=== PATIENT | male | born 1980 | race Caucasian/White ===

== ENCOUNTER 2018-03-27 10:25 | Emergency (ER) | payer OTHER ==
[2018-03-27 10:41] VITALS: BP 156/87
--- NOTE | 2018-03-27 12:52 | XRAY Report ---
Procedure Date: 03/27/2018 Accession Number: [id number] / [id number] Procedure: XR - Knee 3 View RT CPT Code: FULL RESULT: EXAM: RIGHT KNEE RADIOGRAPHY EXAM DATE: 03/27/2018 12:39 PM. CLINICAL HISTORY: Pain while dancing. COMPARISON: None. TECHNIQUE: 3 views. FINDINGS: Bones: Normal. No fractures or bone lesions. Joints: There are minimal degenerative changes of the lateral femorotibial compartment and there is no joint effusion. Soft Tissues: Normal. No soft tissue swelling. IMPRESSION: Minimal degenerative changes. RADIA
--- NOTE | 2018-03-27 13:03 | ED Physician Documentation ---
PD HPI LOWER EXT INJURY - Stated complaint Stated Complaint: RT KNEE PX - Chief complaint Chief Complaint: Trauma Ext - History obtained from History obtained from: Patient - History of Present Illness PD HPI LOW EXT INJURY LOCATION: Right, Knee Type of injury: Other (dancing) Timing - onset: How many weeks ago (5) Timing - duration: Weeks (5) Timing - details: Abrupt onset, Still present Improved by: Rest, Ice, Immobilization Worsened by: Moving, Palpating Associated symptoms: Swelling, Discolored. 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 He has recently gone out and done some dancing and following that he ended up with an effusion on his knee and this did lead to some bleeding subcutaneously with some discoloration of his anterior calf that is all now resolved. The patient has been using a compression sleeve and a articulating brace while he is at work. Despite all this he continues to have pain in the knee and he is wondering what more he can do for this. He has had having some trouble at work and he is self-employed. Review of Systems Constitutional: denies: Fever Eyes: denies: Decreased vision Ears: denies: Ear pain Nose: denies: Congestion Throat: denies: Sore throat Respiratory: denies: Cough GI: denies: Vomiting Musculoskeletal: reports: Extremity pain, Joint pain, Joint swelling, Pain with weight bearing Neurologic: denies: Generalized weakness, Focal weakness, Numbness PD PAST MEDICAL HISTORY - Past Medical History Past Medical History: No - Past Surgical History Past Surgical History: Yes General: Other - Present Medications Home Medications: Ambulatory Orders Medication Instructions Recorded Confirmed No Known Home Medications [No 03/27/18 03/27/18 Known Home Medications] - Allergies Allergies/Adverse Reactions: Allergies Allergy/AdvReac Type Severity Reaction Status Date / Time No Known Drug Allergies Allergy Verified 03/27/18 10:41 - Social History Does the pt smoke?: No Smoking Status: Never smoker Does the pt drink ETOH?: Yes ETOH Use: Beer Does the pt have substance abuse?: Yes Substance Use and Type: Marijuana - Immunizations Immunizations are current?: Yes - POLST Patient has POLST: No PD ED PE NORMAL - Vitals Vital signs reviewed: Yes (hypertensive) - General General: Alert and oriented X 3, No acute distress, Well developed/nourished - HEENT HEENT: Atraumatic, PERRL - Respiratory Respiratory: No respiratory distress - Derm Derm: Normal color, Warm and dry, No rash - Extremities Extremities: No deformity, No edema, Other (There is minimal effusion present and full ROM. Ligaments are stable to testing and distal n/v is intact. ) - Neuro Neuro: Alert and oriented X 3, scale model maker 2-12 intact, No motor deficit, No sensory deficit, Normal speech Eye Opening: Spontaneous Motor: Obeys Commands Verbal: Oriented GCS Score: 15 - Psych Psych: Normal mood, Normal affect Results - Vitals Vitals: Vital Signs - 24 hr 03/27/18 10:38 Temperature 36.6 C Heart Rate 71 Respiratory 18 Rate Blood Pressure 156/87 H O2 Saturation 98 Oxygen O2 Source Room air - Rads (name of study) right knee Radiology: Prelim report reviewed (Impression: Minimal degenerative changes.), EMP read indepedently, See rad report PD MEDICAL DECISION MAKING - ED course Complexity details: reviewed results, re-evaluated patient, considered differential, d/w patient ED course: 38-year-old male with right knee effusion has some mild arthritis on his x-ray he appears to have overdone it and is having slow resolution of the effusion. He is administered dexamethasone 10 mg orally. He is instructed on physical therapy for his knee to strengthen his quadriceps and improve the joint ride. I have referred the patient to orthopedics should he require further treatment with injection. - Sepsis Event Vital Signs: Vital Signs - 24 hr 03/27/18 10:38 Temperature 36.6 C Heart Rate 71 Respiratory 18 Rate Blood Pressure 156/87 H O2 Saturation 98 Oxygen O2 Source Room air Departure - Departure Disposition: 01 Home, Self Care Clinical Impression: Internal derangement of knee Qualifiers: Laterality: right Qualified Code(s): M23.91 - Unspecified internal derangement of right knee Condition: Stable Instructions: ED Effusion Knee Follow-Up: [facility] [Provider Group]
[2018-03-27] MEDS ORDERED: DEXAMETHASONE 10 MG/ML VIAL PO STA (13:04)
== END 2018-03-27 13:09 | disposition home or self-care (01) ==
LOC: ED 10:25
DX: M23.91 Unspecified internal derangement of right knee (principal)
CPT/HCPCS: 99283

== ENCOUNTER 2019-07-19 07:07 | Outpatient (CLI) | payer OTHER ==
[2019-07-19 10:12] LABS: BASOPHILS # (AUTO) 0.1 10^3/uL (0.0-0.1); BASOPHILS % (AUTO) 0.9 %; EOSINOPHILS # (AUTO) 0.2 10^3/uL (0.0-0.7); EOSINOPHILS % (AUTO) 3.2 %; HGB - HEMOGLOBIN 16.2 g/dL (14.0-18.0); LYMPHOCYTES # (AUTO) 1.8 10^3/uL (1.5-3.5); LYMPHOCYTES % (AUTO) 27.5 %; MEAN CORPUSCULAR HEMOGLOBIN 30.8 pg (27.0-31.0); MEAN CORPUSCULAR HGB CONC 34.8 g/dL (32.0-36.0); MEAN CORPUSCULAR VOLUME 88.6 fL (80.0-94.0); MEAN PLATELET VOLUME 11.4 fL (7.4-11.4); MONOCYTES # (AUTO) 0.6 10^3/uL (0.0-1.0); MONOCYTES % (AUTO) 9.3 %; NEUTROPHILS # (AUTO) 3.9 10^3/uL (1.5-6.6); NEUTROPHILS % (AUTO) 58.8 %; PLT - PLATELET COUNT 229 10^3/uL (130-450); RED BLOOD COUNT 5.26 10^6/uL (4.70-6.10); RED CELL DISTRIBUTION WIDTH 12.2 % (12.0-15.0); WHITE BLOOD COUNT 6.6 x10^3/uL (4.8-10.8)
[2019-07-19 10:29] LABS: ALBUMIN 4.5 g/dL (3.2-5.5); ALBUMIN/GLOBULIN RATIO 1.5 (1.0-2.2); ALKALINE PHOSPHATASE 44 IU/L (42-121); ALT ALANINE AMINOTRANSFERASE 24 IU/L (10-60); AST ASPARTATE AMINOTRANSFERASE 21 IU/L (10-42); BILIRUBIN,TOTAL 0.6 mg/dL (0.2-1.0); BUN - BLOOD UREA NITROGEN 15 mg/dL (6-20); CALCIUM 9.2 mg/dL (8.5-10.3); CARBON DIOXIDE - CO2 25 mmol/L (21-32); CHLORIDE 106 mmol/L (101-111); CHOL/HDL RATIO 4.5 (<5.0); CHOLESTEROL 193 mg/dL; GFR - MDRD 82 (>89); GLUCOSE 105 mg/dL (70-100); HDL CHOLESTEROL 43 mg/dL; LDL CHOLESTEROL,CALCULATED 137 mg/dL; LDL/HDL RATIO 3.2 (<3.6); SODIUM 141 mmol/L (135-145); TOTAL PROTEIN 7.6 g/dL (6.7-8.2); VLDL CHOLESTEROL 13 mg/dL
[2019-07-19 10:31] LABS: CRP - C-REACTIVE PROTEIN < 1.0 mg/dL (0-1.0)
== END 2019-07-19 07:08 | disposition home or self-care (01) ==
LOC: LAB.S 07:07
PROVIDERS: ATTEND Registered Nurse
DX: R00.2 Palpitations (principal); R07.9 Chest pain, unspecified
CPT/HCPCS: 36415; 80053; 80061; 83721; 84443; 84484; 85025; 86140

== ENCOUNTER 2019-07-26 07:45 | Outpatient (CLI) | payer OTHER | END 2019-07-26 07:46 | disposition home or self-care (01) | LOC: DI 07:45 | PROVIDERS: ATTEND Registered Nurse | DX: R07.89 Other chest pain (principal); R00.2 Palpitations; Z82.49 Family history of ischemic heart disease and other diseases of the circulatory system | CPT/HCPCS: 93306 ==

== ENCOUNTER 2022-01-24 11:16 | Emergency (ER) | payer SELFPAY ==
[2022-01-24 11:36] VITALS: BP 131/68
--- NOTE | 2022-01-24 12:17 | XRAY Report ---
PROCEDURE: Wrist 4 View LT INDICATIONS: Trauma TECHNIQUE: 4 views of the wrist were acquired. COMPARISON: None FINDINGS: Bones: There is a comminuted intra-articular distal radial fracture with mild displacement. No residu al mild impaction is also noted. The No suspicious bony lesions. Scaphoid view: No visualized scaphoid fracture. Soft tissues: No suspicious soft tissue calcifications. IMPRESSION: Mildly displaced intra-articular comminuted distal radial fracture. Reviewed by: Jessica Moraes MD on 01/24/2022 12:15 PM PDT Approved by: Jessica Moraes MD on 01/24/2022 12:15 PM PDT Station ID: [id number]
[2022-01-24] MEDS ORDERED: NAPROXEN 250 MG TABLET PO STA (13:21)
[2022-01-24] MEDS ORDERED: TETANUS/DIPHTHERIA/PERTUSSIS 0.5 ML SYRINGE IM ONE (13:21)
[2022-01-24] MEDS ORDERED: BACITRACIN ZINC OINT 1 PACKET TOP STA (13:21)
--- NOTE | 2022-01-24 13:24 | ED Physician Documentation ---
PD HPI LOWER EXT INJURY - Stated complaint Stated Complaint: L HAND INJURY; FALL - Chief complaint Chief Complaint: Trauma Ext - History obtained from History obtained from: Patient - Additional information Additional information: [place] the [place] this [place] and slipped on the rocks. Fell on outstretched left wrist with moderate left wrist pain although declined prescription pain medications for same. Also has a scrape on the abdominal wall. He is not up-to-date on tetanus. Review of Systems Constitutional: denies: Fever, Chills, Myalgias Musculoskeletal: reports: Joint swelling. denies: Neck pain, Back pain, Pain with weight bearing Neurologic: denies: Headache, Head injury, LOC PD PAST MEDICAL HISTORY - Past Surgical History Past Surgical History: Yes General: Other - Present Medications Home Medications: Ambulatory Orders Medication Instructions Recorded Confirmed No Known Home Medications 03/27/18 01/24/22 - Allergies Allergies/Adverse Reactions: Allergies Allergy/AdvReac Type Severity Reaction Status Date / Time No Known Drug Allergies Allergy Verified 01/24/22 11:32 - Social History Does the pt smoke?: No Smoking Status: Never smoker Does the pt drink ETOH?: Yes Does the pt have substance abuse?: Yes - Immunizations Immunizations are current?: Yes - POLST Patient has POLST: No PD ED PE NORMAL - Vitals Vital signs reviewed: Yes - General General: Alert and oriented X 3, No acute distress - HEENT HEENT: PERRL, EOMI - Neck Neck: Supple, no meningeal sign, No bony TTP - Abdomen Abdomen: Other (He is an abrasion broad very shallow right mid lateral abdominal wall, no abdominal tenderness.) - Extremities Extremities: Other (Tender over the left distal radius with distal limited range of motion. Normal neurovascular function in the hand.) - Neuro Neuro: Alert and oriented X 3, Normal speech Results - Vitals Vitals: Vital Signs - 24 hr 01/24/22 11:32 Temperature 36.7 C Heart Rate 71 Respiratory 16 Rate Blood Pressure 131/68 H O2 Saturation 97 Oxygen O2 Source Room air - Rads (name of study) Comminuted and slightly impacted left distal radius fracture Radiology: EMP read contemporaneously Procedures - Splint (location) Left wrist Splint applied by: Tech Type of splint: Fiberglass, Short arm, Volar cock up Other: Patient tolerated well, No complications, Neurovascular intact PD MEDICAL DECISION MAKING - ED course ED course: He had some scrapes on the hand and these were washed and dressed with Xeroform under the splint by the tech. He declined prescription pain medications. Departure - Departure Disposition: 01 Home, Self Care Clinical Impression: Fracture of left distal radius Qualifiers: Encounter type: initial encounter Fracture type: closed Fracture morphology: Colles' Qualified Code(s): S52.532A - Colles' fracture of left radius, initial encounter for closed fracture Condition: Good Record reviewed to determine appropriate education?: Yes Instructions: ED Fx Forearm Radius Ulna No Redu Requ Follow-Up: [facility] [Provider Group] Comments: Aleve or ibuprofen as needed for pain. Return for new or worsening symptoms. Keep the splint on and dry. Follow-up with orthopedics, call today for an appointment.
== END 2022-01-24 13:43 | disposition home or self-care (01) ==
LOC: ED 11:16
DX: S52.532A Colles' fracture of left radius, initial encounter for closed fracture (principal); W01.198A Fall on same level from slipping, tripping and stumbling with subsequent striking against other object, initial encounter; Y93.01 Activity, walking, marching and hiking; Y92.832 Beach as the place of occurrence of the external cause; Z23 Encounter for immunization; Z71.85 Encounter for immunization safety counseling
CPT/HCPCS: 73110; 90471; 90715; 99283; 99284; A9270